=== PATIENT | female | born 1930 | race Caucasian/White ===

== ENCOUNTER 2017-11-04 15:04 | Emergency (ER) | payer OTHER ==
[~2017-11-04] VITALS: Ht 152.4 cm; Wt 46.3 kg
[~2017-11-04 15:04] MED LIST: ANTIVERT25 M1 PO; ASA81 MG PO; COZAAR25 MG PO; VITAMIN D3400 UNI1 PO
[2017-11-04] MEDS ORDERED: ARICEPT5 MG (15:13)
== END 2017-11-04 22:14 | disposition home or self-care (01) ==
LOC: ER 15:04
DX: R42 Dizziness and giddiness (principal)

== ENCOUNTER 2018-03-07 07:36 | Outpatient (CLI) | payer OTHER ==
[~2018-03-07 07:36] MED LIST changes: +ARICEPT5 MG
== END 2018-03-07 07:40 | disposition home or self-care (01) ==
LOC: SONOGRAMA 07:36
DX: R22.1 Localized swelling, mass and lump, neck (principal)

== ENCOUNTER 2018-12-06 09:33 | Outpatient (CLI) | payer OTHER | END 2018-12-06 09:36 | disposition home or self-care (01) | LOC: RAD 09:33 | DX: R07.89 Other chest pain (principal) ==

== ENCOUNTER 2018-12-15 12:12 | Outpatient (CLI) | payer OTHER | END 2018-12-15 12:30 | disposition home or self-care (01) | LOC: NUCLEAR 12:12 | DX: M81.0 Age-related osteoporosis without current pathological fracture (principal) ==

== ENCOUNTER 2019-03-16 10:47 | Outpatient (CLI) | payer OTHER | END 2019-03-16 14:44 | disposition home or self-care (01) | LOC: LAB 10:47 | DX: I71.4 Abdominal aortic aneurysm, without rupture (principal) ==

== ENCOUNTER 2019-03-27 07:39 | Outpatient (CLI) | payer OTHER | END 2019-03-27 07:42 | disposition home or self-care (01) | LOC: TOM 07:39 | DX: R10.84 Generalized abdominal pain (principal) | CPT/HCPCS: 74170; Q9965 ==

== ENCOUNTER 2020-04-04 07:17 | Outpatient (CLI) | payer OTHER | END 2020-04-04 07:26 | disposition home or self-care (01) | LOC: TOM 07:17 | PROVIDERS: ATTEND Internal Medicine Cardiovascular Disease | DX: K57.90 Diverticulosis of intestine, part unspecified, without perforation or abscess without bleeding (principal); I71.4 Abdominal aortic aneurysm, without rupture | CPT/HCPCS: 74178; Q9965 ==

== ENCOUNTER 2020-09-25 12:51 | Outpatient (CLI) | payer OTHER | END 2020-09-25 12:53 | disposition home or self-care (01) | LOC: RAD 12:51 | PROVIDERS: ATTEND Internal Medicine | DX: R07.89 Other chest pain (principal) ==